=== PATIENT | female | born 1990 | race Caucasian/White ===

== ENCOUNTER 2021-09-03 12:51 | Emergency (ER) | payer SELFPAY ==
[~2021-09-03] VITALS: Ht 152.4 cm; Wt 68.0 kg
--- NOTE | 2021-09-03 13:03 | NUR ---
BIB [facility] 78 [facility],ETOH,GOT A DAY PASS FROM REHAB AFTER BEING SOBER FOR 1 WEEK. ALERT AND ORIENTED X1. DENIES PAIN. IN ROOM AIR AND DENIES SOB. RESPIRATION REGULAR AND UNLABORED. DENIES SI/HI. ATTACHED TO THE MONITOR.
[2021-09-03] MEDS ORDERED: diphenhydrAMINE HCL 50 MG/ML VIAL ONE (14:08)
[2021-09-03] MEDS ORDERED: HALOPERIDOL LACTATE INJ 5 MG/ML VIAL ONE (14:08)
--- NOTE | 2021-09-03 14:11 | NUR ---
Pt yelling and screaming at staff. Pt attempting to elope, visibly intoxicated, slurring speech. Attempted to reorient pt and unsuccessful. Dr. Arellano at bedside to evaluate. Medicated as ordered
[2021-09-03] MEDS ORDERED: diphenhydrAMINE HCL 50 MG/ML VIAL IM ONE (14:30)
[2021-09-03] MEDS ORDERED: HALOPERIDOL LACTATE INJ 5 MG/ML VIAL IM ONE (14:30)
--- NOTE | 2021-09-03 19:00 | NUR ---
[facility] CALLED [employer] SUPERVISOR [phone] PLEASE CALL WHEN PT IS READY TO BE DC. HE WILL ARRANGE TRANSPORTATION.
--- NOTE | 2021-09-03 21:26 | NUR ---
PASSED ROAD TEST
--- NOTE | 2021-09-03 21:29 | NUR ---
CALLED [facility], [employer] MACHINE, AND INFORMED HIM THAT PT WAS READY TO BE DC. TRANSPORT WILL ARRIVE WITHIN 60 MIN.
[2021-09-03 22:04] VITALS: BP 124/73
--- NOTE | 2021-09-03 22:04 | NUR ---
Patient discharged to home in stable condition. Written and verbal after care instructions given. Patient verbalizes understanding of instruction.
== END 2021-09-03 22:05 ==
LOC: ER 12:57
DX: F10.129 Alcohol abuse with intoxication, unspecified (principal); Y90.9 Presence of alcohol in blood, level not specified
CPT/HCPCS: 96372 ×2; 99284; J1200; J1630